=== PATIENT | female | born 1985 | race African-American/Black ===

== ENCOUNTER 2018-10-10 15:52 | Emergency (ER) | payer MEDICAID ==
[~2018-10-10] VITALS: Ht 172.7 cm; Wt 66.7 kg
[2018-10-10] MEDS ORDERED: NACL 0.9% 1,000 ML IV ONE (16:20)
[2018-10-10 17:02] LABS: EOSINOPHILS # (AUTO) 0.1 K/uL (0.0-0.4); HEMOGLOBIN 12.9 g/dL (12.0-16.0)
[2018-10-10 17:12] LABS: PROTHROMBIN TIME 10.1 SECS (9.5-12.5)
[2018-10-10 17:16] LABS: CALCIUM 8.8 mg/dL (8.4-11.0); CREATININE 0.95 mg/dL (0.55-1.30); POTASSIUM 3.3 mmol/L (3.5-5.1)
[2018-10-10 17:18] LABS: BASOPHILS # (AUTO) 0.1 K/uL (0.0-0.2); BASOPHILS % (AUTO) 1.4 % (0.0-2.0); EOSINOPHILS % (AUTO) 1.2 % (0.0-4.0); HEMATOCRIT 39.2 % (36-48); LYMPHOCYTES # (AUTO) 1.9 K/uL (1.0-5.5); LYMPHOCYTES % (AUTO) 29.9 % (20.5-51.5); MEAN CORPUSCULAR HEMOGLOBIN 30 pg (27-31); MEAN CORPUSCULAR HGB CONC 33 % (32-36); MEAN CORPUSCULAR VOLUME 90 fL (79.0-98.0); MONOCYTES # (AUTO) 0.3 K/uL (0.0-1.0); NEUTROPHILS # (AUTO) 3.9 K/uL (1.8-7.7); NEUTROPHILS % (AUTO) 62.5 % (40.0-70.0); PLATELET COUNT (AUTO) 385 K/uL (130-430); RED BLOOD CELL COUNT(AUTO) 4.35 MIL/uL (4.2-6.2); RED CELL DISTRIBUTION WIDTH 13.4 % (9.0-15.0); WHITE BLOOD COUNT (AUTO) 6.3 K/uL (4.8-10.8)
[2018-10-10 17:21] LABS: ALBUMIN 3.5 g/dL (3.4-4.8); TOTAL BILIRUBIN 0.4 mg/dL (0.0-1.0)
[2018-10-10 17:57] LABS: BILIRUBIN,URINE NEGATIVE (NEGATIVE); CLARITY/URINE HAZY (CLEAR); COLOR,URINE YELLOW (YELLOW); GLUCOSE,URINE NEGATIVE (NEGATIVE); KETONES,URINE NEGATIVE (NEGATIVE); LEUKOCYTE ESTERASE ,URINE NEGATIVE (NEGATIVE); NITRITE, URINE NEGATIVE (NEGATIVE); PROTEIN URINE TRACE (NEGATIVE); UROBILINOGEN,URINE 0.2 (0.2-1.0)
[2018-10-10 18:04] LABS: BLOOD, URINE TRACE (NEGATIVE)
[2018-10-10 18:20] LABS: BACTERIA,URINE MODERATE /HPF (None Seen); MUCUS,URINE 2+ /LPF (None Seen); RBC,URINE 0-3 /HPF (0-3)
[2018-10-10 19:00] VITALS: BP_SYST 122
== END 2018-10-10 19:00 | disposition home or self-care (01) ==
LOC: SED 15:52
DX: K91.89 Other postprocedural complications and disorders of digestive system (principal); R10.30 Lower abdominal pain, unspecified; F17.200 Nicotine dependence, unspecified, uncomplicated; R03.0 Elevated blood-pressure reading, without diagnosis of hypertension; Z71.6 Tobacco abuse counseling
CPT/HCPCS: 36415; 71045; 80053; 81000; 81025; 82150; 83605; 83690; 85025; 85610; 85730; 87040; 87086; 99284; J7030

== ENCOUNTER 2019-12-13 11:55 | Emergency (ER) | payer MEDICAID ==
[~2019-12-13] VITALS: Ht 172.7 cm; Wt 68.5 kg
[2019-12-13 12:10] VITALS: BP_SYST 121
[2019-12-13 12:41] VITALS: BP_SYST 121
[2019-12-13] MEDS ORDERED: KETOROLAC TROMETHAMINE 30 MG VIAL IM ONE (12:45)
[2019-12-13] MEDS ORDERED: KETOROLAC TROMETHAMINE 30 MG VIAL ONE (12:51)
== END 2019-12-13 12:42 | disposition home or self-care (01) ==
LOC: SED 11:55
DX: N94.6 Dysmenorrhea, unspecified (principal)
CPT/HCPCS: 96372; 99283; J1885

== ENCOUNTER 2020-11-14 13:01 | Emergency (ER) | payer OTHER, MEDICAID ==
[~2020-11-14] VITALS: Ht 172.7 cm; Wt 81.6 kg
[2020-11-14 13:09] VITALS: BP_SYST 136
--- NOTE | 2020-11-14 13:09 | NUR ---
Patient to ER bed 04 to gown for evaluation. Side rails up.
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
--- NOTE | 2020-11-14 13:11 | NUR ---
ER Dr. Shipley at bedside examining patient.
[2020-11-14] MEDS ORDERED: HYDR-3919 PO (13:22)
[2020-11-14] MEDS ORDERED: NAPR-688 PO (13:22)
== END 2020-11-14 13:33 | disposition home or self-care (01) ==
LOC: SED 13:01
DX: S40.021A Contusion of right upper arm, initial encounter (principal); Y08.89XA Assault by other specified means, initial encounter; Y93.89 Activity, other specified; Y92.89 Other specified places as the place of occurrence of the external cause; Y99.8 Other external cause status
CPT/HCPCS: 81025; 99282